=== PATIENT | male | born 1995 | race Two or more races ===

== ENCOUNTER 2022-01-19 22:25 | Emergency (ER) | payer BC, OTHER ==
[2022-01-19 22:37] VITALS: BP 156/87; PULSE 78; TEMP 99.2; BMI 47.5
[2022-01-19] MEDS ORDERED: IBUPROFEN 400 MG TABLET (FP) PO ONE ×2 (23:23→23:41)
[2022-01-19] MEDS ORDERED: AMOX TR/POT CLAV 500MG/125MG TABLETS (FP) PO ONE (23:24)
[2022-01-19] MEDS ORDERED: AMOX TR/POT CLAV 500MG/125MG TABLETS (FP) ONE (23:41)
== END 2022-01-20 00:50 | disposition home or self-care (01) ==
LOC: JER 22:25
DX: H66.92 Otitis media, unspecified, left ear (principal)
CPT/HCPCS: 82962; 99283-25